=== PATIENT | male | born 1960 | race Caucasian/White ===

== ENCOUNTER 2024-05-09 14:49 | Emergency (ER) | payer MEDICAID, SELFPAY ==
[2024-05-09 14:50] VITALS: BMI 31.9
--- NOTE | 2024-05-09 15:20 | XR_ITS ---
Examination: Testicular sonography complete TECHNIQUE: Aleman scale sonographic images testes, assessment arterial inflow venous outflow, Doppler spectral analysis, color flow analysis. Exam date and time: May 09, 2024, 1600 hours INDICATIONS: Right testicular swelling beginning 2 days ago FINDINGS: Right testis is 4.6 cm epididymis 32 mm 2 x 3 mm right testicular mass 7 mm right epididymal calcification 4 mm right epididymal cyst Right inguinal hernia 21 x 20 mm Mild hydrocele Left testis is 4.6 cm epididymis 25 mm Arterial flow to the testicle. 2 small testicular cysts, the largest 5 x 6 mm Left epididymal cyst 3 x 3 mm IMPRESSION: No testicular torsion Right testicular solid mass 2 x 3 mm Bilateral epididymal cysts Right inguinal hernia Bilateral epididymitis
--- NOTE | 2024-05-09 15:20 | EDRME_ITS ---
Rapid Medical Screening Exam RME Arrival date/time: 05/09/24 14:49 63-year-old male with a history of hyperlipidemia, BPH presents to the emergency room with a chief complaint of right sided testicular swelling and tenderness x 2 days I have greeted and performed a focused initial assessment of this patient. A c omprehensive ED assessment and evaluation of the patient, analysis of all test results, and completion of the medical decision making process will be conducted by additional ED providers. Chief Complaint: Urogenital-Male Vital signs reviewed by provider: Yes
[2024-05-09 15:22] VITALS: BP 114/73; PULSE 66; RESP 16; TEMP 37; O2SAT 94
[2024-05-09 15:56] LABS: Basophils # (Auto) 0.1 Thou/mm3 (0.0-0.2); Basophils % (Auto) 1 % (0-2.5); Eosinophils # (Auto) 0.1 Thou/mm3 (0.0-0.5); Eosinophils % (Auto) 2 % (0-10); Hematocrit 43.3 % (41.0-53.0); Immature Granulocytes % (Auto) 0 % (0-0); Immature Granulocytes Auto 0.02 Thou/mm3 (0.00-0.00); Lymphocytes # (Auto) 1.4 Thou/mm3 (1.0-4.8); Lymphocytes % (Auto) 21 % (10-50); Mean Corpuscular HGB Conc 34.6 g/dl (31.0-37.0); Mean Corpuscular Hemoglobin 32.4 pg (25.0-35.0); Mean Corpuscular Volume 94 fL (80-100); Monocytes # (Auto) 0.5 Thou/mm3 (0.0-0.8); Monocytes % (Auto) 8 % (0-12); Neutrophils # (Auto) 4.6 Thou/mm3 (1.8-7.7); Neutrophils % (Auto) 69 % (37-80); Nucleated Red Blood Cell % 0 /100 WBC (0); Platelet Count 186 Thou/mm3 (140-440); RDW Standard Deviation 43.9 fL (35.1-43.9); Red Blood Count 4.63 Miln/mm3 (4.50-5.90); White Blood Count 6.7 Thou/mm3 (3.8-10.6)
[2024-05-09 16:13] LABS: Alanine Aminotransferase 33 U/L (10-49); Albumin, Serum 4.8 gm/dL (3.4-4.8); Albumin/Globulin Ratio 1.7 (1.2-2.2); Alkaline Phosphatase 67 U/L (46-116); Anion Gap 9 (7-16); Aspartate Amino Transferase 32 U/L (0-34); BUN/Creatinine Ratio 13 Ratio (12-20); Bilirubin,Total 1.1 mg/dL (0.3-1.2); Blood Urea Nitrogen 14 mg/dL (9-23); Calcium 9.6 mg/dL (8.3-10.6); Calcium (Corrected) 9.6 mg/dL (8.5-10.1); Carbon Dioxide 28.3 mMol/L (20.0-31.0); Chloride 105 mMol/L (98-107); Creatinine (Component) 1.1 mg/dL (0.6-1.3); Estimated Creatinine Clearance 78.9 mL/min (>60); Globulin 2.8 gm/dL (2.3-3.5); Glucose 88 mg/dL (74-106); Osmolality,Calculated 282 (275-295); Potassium 3.6 mMol/L (3.4-5.1); Sodium 142 mMol/L (136-145); Total Protein 7.6 gm/dL (5.7-8.2); eGFR > 60 See Note
[2024-05-09 16:15] LABS: Collection Type, Urine Clean Catch; Squamous Epithelial Cell,Urine 0 /hpf (0-5)
[2024-05-09 16:30] LABS: Bilirubin,Urine Negative (Negative); Blood,Urine Negative (Negative); Color,Urine Yellow (Lt Yel-Yel); Culture Indicated,Urine Not Indicated; Glucose, Urine Negative (Negative); Ketones,Urine Negative (Negative); Leukocyte Esterase,Urine Negative (Negative); Nitrite,Urine Negative (Negative); PH,Urine 5.5 (5.0-7.0); Protein,Urine Trace (Neg - Trace); RBC,Urine 2 /hpf (0-3); Specific Gravity,Urine 1.024 (1.001-1.035); WBC,Urine 1 /hpf (0-5)
[2024-05-09 16:34] LABS: Clarity,Urine Hazy (Clear/Hazy)
--- NOTE | 2024-05-09 18:24 | PD.EDADULT ---
ED General RME/HPI General Chief complaint: Urogenital-Male Stated complaint: Referred by PCP for US testicle Arrival date/time: 05/09/24 14:49 CC: Right testicular pain HPI ongoing for the past 2 days. Denies penile discharge blood with urination painful urination. Past medical history of similar event back in his 30s . Patient has no other complaints. RME / HPI RME / HPI narrative: 05/09/24 14:49 63-year-old male with a history of hyperlipidemia, BPH presents to the emergency room with a chief complaint of right sided testicular swelling and tenderness x 2 days I have greeted and performed a focused initial assessment of this patient. A comprehensive ED assessment and evaluation of the patient, analysis of all test results, and completion of the medical decision making process will be conducted by additional ED providers. Related Data Home Medications ?Medication ?Instructions ?Recorded ?Confirmed atorvastatin 40 mg tablet 1 mg PO DAILY 09/12/23 09/12/23 fluticasone propionate 50 1 mcg intranasal PRN PRN allergies 09/12/23 09/12/23 mcg/actuation nasal spray,suspension hydrochlorothiazide 25 mg tablet 25 mg PO QAM 09/12/23 09/12/23 lacosamide 200 mg tablet 200 mg PO BID 09/12/23 09/12/23 lansoprazole 15 mg capsule,delayed 1 mg PO AC 09/12/23 09/12/23 release levetiracetam 1,000 mg tablet 1.5 mg PO BID 09/12/23 09/12/23 olanzapine 10 mg disintegrating 15 mg PO DAILY 09/12/23 09/12/23 tablet Held on 09/14/23. Instructions: Resume on 10/05/23. HOLD until neurology appointment tamsulosin 0.4 mg capsule 1 mg PO DAILY 09/12/23 09/12/23 Previous Rx's ?Medication ?Instructions ?Recorded levofloxacin 750 mg tablet 750 mg PO Q24H 10 days #10 tabs 05/09/24 Allergies Allergy/AdvReac Type Severity Reaction Status Date / Time aspirin Allergy Unknown Verified 09/12/23 19:49 Review of Systems Review of Systems Narrative Review of Systems: GEN: No fever, no chills, no weight loss EYES: No discharge, no visual changes, no pain HEENT: No ear pain, no congestion, no sore throat PULM: No shortness of breath, no cough, no congestion CV: No chest pain, no dyspnea on exertion, no palpitations GI: No nausea, no vomiting, no diarrhea, no pain, no constipation : No frequency, no urgency, no dysuria,+ testicular pain MUSC/SKEL: No joint pain, no back pain SKIN: No rash PSYCH: No hallucinations, no depression HEME/LYMPH: No easy bleeding or bruising tendencies NEURO: No weakness, no headache Past Medical History Past Medical History NEUROLOGIC: Positive Seizures CARDIAC: Positive Hypercholesterolemia and Hypertension; Negative Congestive Heart Failure RESPIRATORY: Positive Chronic Obstructive Pulmonary Disease (COPD) and Asthma GENITOURINARY: Negative Renal Disease ENDOCRINE: Negative Diabetes Mellitus Type 1 or Diabetes Mellitus Type 2 HEMATOLOGIC: Negative Blood Disorders PSYCHO/SOCIAL: Positive Schizophrenia and Depression OTHER HISTORY: Positive Falls; Negative Cancer Surgical History SURGICAL: Negative Abdominal Surgery Social History SMOKING STATUS: Former smoker SUBSTANCE USE: does not use ED Exam Narrative Physical exam: [General: Obese not in cot no acute distress Head normocephalic HEENT: Within acceptable limits Neck is supple nontender Chest equal chest rise nontender to palpation Respiratory: Clear to auscultation no wheezes crackles or rubs CV: Rate rhythm is regular no murmurs rubs or clicks Abdomen is distended secondary to body habitus soft nontender no masses positive bowel sounds all 4 quadrants : Penis: Penis is a normal shape circumcised and no crusting blood at meatus. No ulcerations on the shaft or the glans. Scrotum, normal in appearance of both testes are distended right and mild tenderness no appreciable inflammation no erythema open lesions or indurations. Both testes are freely mobile Back: No CVA tenderness no spinous process tenderness from cervical spine thoracic and lumbar spine Skin: Intact no petechiae rash induration ulceration or crepitus Extremities: Moving all extremity against resistance cap refill less than 2 seconds neurosensory intact Neuro: Awake alert oriented x3 Glascow coma 15 no focal deficits] Course Quality Measures none Orders Category Date Time Status US testicular Stat Exams 05/09/24 15:20 Completed CBC Stat Lab 05/09/24 15:28 Completed CMP [Comprehensive Metabolic Panel] Stat Lab 05/09/24 15:28 Completed UA, C/S IF [Urinalysis, C/S if Indicated] Stat Lab 05/09/24 16:00 Completed cefTRIAXone [Rocephin] 500 mg Med 05/09/24 18:20 Discontinued Lidocaine 1% 20 ml [Xylocaine 1% 20 ML] 1 ml IM X1 Vital Signs Vital signs: Vital Signs Temperature 98.6 F 05/09/24 15:22 Pulse Rate 66 05/09/24 15:22 Respiratory Rate 16 05/09/24 15:22 Blood Pressure 114/73 05/09/24 15:22 Pulse Oximetry (%) 94 L 05/09/24 15:22 Oxygen Delivery Method Room Air 05/09/24 15:22 [facility] Patient data External records reviewed:: [facility] previous records Clinical information provided by:: patient Social determinants that could affect healthcare access:: none Patient has the following chronic illnesses:: None How is presenting disease/condition affected by chronic disease/condition?: uneffected by Evaluation data The following diagnostics were reviewed and interpreted by me:: lab results and radiology exam(s) Lab and/or radiology exams considered but not ordered:: CBC shows no acute leukocytosis anemia thrombocytopenia CMP shows no acute electrolyte imbalances renal impairment transaminitis or T. bili elevation Ultrasound shows right inguinal hernia, epididymitis bilaterally, and a small mass on the right testes. Interpretation Summary: Patient informed that he will need antibiotics for the epididymitis states that he saw his doctor yesterday and was written for antibiotics but he does not sure what they are. Patient also informed of the testicular mass and he is to follow-up with urology. Medications Medications considered but not ordered:: None Medication administrations:: Medication Administration History Discontinued Medications Ceftriaxone Sodium 500 mg/ (Lidocaine HCl 1 ml) 0 mg IM X1 ONE Stop: 05/09/24 18:21 None Consultations Consultation(s) initiated? (list below): No Diagnosis Differential Diagnosis ED Complaint MDM: Epididymitis orchitis hydrocele Most likely diagnosis given after review of the tests above:: Epididymitis testicular mass Admission Indicated Admission indicated?: not indicated Explain why admission is indicated or not indicated:: Stable for discharge Admission Request Was there a request for admission?: No Disposition Plan Disposition Plan: Discharge Discharge Attestation Discharge Attestation: The patient and all family members were given an opportunity to ask questions and understood the discharge instructions. Discharge instructions specifically effects, indications for sooner follow up or return to the emergency department, and the expected course of current diagnosis. Patient condition: Stable Medical Decision Making Differential Diagnosis Differential Diagnosis: Epididymitis orchitis hydrocele Lab Data 05/09/24 15:28 05/09/24 15:28 Labs: Lab Results 05/09/24 05/09/24 Range/Units 15:28 16:00 WBC 6.7 (3.8-10.6) Thou/mm3 RBC 4.63 (4.50-5.90) Miln/mm3 Hgb 15.0 (13.5-16.0) g/dL Hct 43.3 (41.0-53.0) % MCV 94 (80-100) fL MCH 32.4 (25.0-35.0) pg MCHC 34.6 (31.0-37.0) g/dl RDW Std Deviation 43.9 (35.1-43.9) fL Plt Count 186 (140-440) Thou/mm3 Neut % (Auto) 69 (37-80) % Lymph % (Auto) 21 (10-50) % [place] % (Auto) 8 (0-12) % Eos % (Auto) 2 (0-10) % Baso % (Auto) 1 (0-2.5) % Neut # (Auto) 4.6 (1.8-7.7) Thou/mm3 Lymph # (Auto) 1.4 (1.0-4.8) Thou/mm3 [place] # (Auto) 0.5 (0.0-0.8) Thou/mm3 Eos # (Auto) 0.1 (0.0-0.5) Thou/mm3 Baso # (Auto) 0.1 (0.0-0.2) Thou/mm3 Immature Gran # (Auto) 0.02 H (0.00-0.00) Thou/mm3 Absolute Nucleated RBC 0.00 (0.00-0.00) Thou/mm3 Immature Gran % 0 (0-0) % Nucleated RBC % 0 (0) /100 WBC Sodium 142 (136-145) mMol/L Potassium 3.6 (3.4-5.1) mMol/L Chloride 105 (98-107) mMol/L Carbon Dioxide 28.3 (20.0-31.0) mMol/L Anion Gap 9 (7-16) BUN 14 (9-23) mg/dL Creatinine 1.1 (0.6-1.3) mg/dL Estim Creat Clear Calc 78.9 (>60) mL/min eGFR > 60 (60 - ) See Note BUN/Creatinine Ratio 13 (12-20) Ratio Glucose 88 (74-106) mg/dL Calculated Osmolality 282 (275-295) Calcium 9.6 (8.3-10.6) mg/dL Corrected Calcium 9.6 (8.5-10.1) mg/dL Total Bilirubin 1.1 (0.3-1.2) mg/dL AST 32 (0-34) U/L ALT 33 (10-49) U/L Alkaline Phosphatase 67 (46-116) U/L Total Protein 7.6 (5.7-8.2) gm/dL Albumin 4.8 (3.4-4.8) gm/dL Globulin 2.8 (2.3-3.5) gm/dL Albumin/Globulin Ratio 1.7 (1.2-2.2) Ur Collection Type Clean Catch Urine Color Yellow (Lt Yel-Yel) Urine Clarity Hazy (Clear/Hazy) Urine pH 5.5 (5.0-7.0) Ur Specific [place] 1.024 (1.001-1.035) Urine Protein Trace (Neg - Trace) Urine Glucose (UA) Negative (Negative) Urine Ketones Negative (Negative) Urine Blood Negative (Negative) Urine Nitrite Negative (Negative) Urine Bilirubin Negative (Negative) Urine Urobilinogen (Auto) 2.0 (0.0-1.0) mg/dL Ur Leukocyte Esterase Negative (Negative) Urine RBC 2 (0-3) /hpf Urine WBC 1 (0-5) /hpf Ur Squamous Epith Cells 0 (0-5) /hpf Urine Bacteria None (None) Ur Culture Indicated? Not Indicated Discharge Plan Plan Patient Disposition: HOME (Self Care) Patient condition on transfer: Stable Prescriptions/Referrals Prescriptions/Med Rec: New levofloxacin 750 mg tablet 750 mg PO Q24H 10 Days Qty: 10 0RF No Action atorvastatin 40 mg tablet 1 mg PO DAILY tamsulosin 0.4 mg capsule 1 mg PO DAILY olanzapine 10 mg tablet,disintegrating 15 mg PO DAILY lansoprazole 15 mg capsule,delayed release(DR/EC) 1 mg PO AC hydrochlorothiazide 25 mg Tablet 25 mg PO QAM levetiracetam 1,000 mg tablet 1.5 mg PO BID lacosamide 200 mg Tablet 200 mg PO BID fluticasone propionate 50 mcg/actuation [place],Suspension 1 mcg INTRANASAL PRN PRN (Reason: allergies) Referrals: Aranza Glass MD [Physician] - In 1 week Problem List Clinical Impression: Epididymitis, Pain in right testicle, Mass of right testis Patient/Caregiver Discharge Instructions Other Activity Instructions:: Have a small mass on your right testicle please follow-up with your urologist listed above. Take all medicines as prescribed if there is worsening of symptoms in spite of the medications return the emergency room immediately for further evaluation. Education Materials: ED Epididymitis Print Language: Djiboutian Stand Alone Forms: Radha Award Info., Patient Portal Info Letter, Work/School Release PA/PEOPLE GREETER Supervising Physician PA/PEOPLE GREETER Supervising Physician: Angel Mccoy ENP
[2024-05-09] MEDS: cefTRIAXone 500 MG, LIDOCAINE 1% 20 ML 1 ML IM (18:36)
== END 2024-05-09 19:01 | disposition home or self-care (01) ==
PROVIDERS: Nurse Practitioner Family; Emergency Provider Emergency Medicine
DX: N45.1 Epididymitis (principal); N50.9 Disorder of male genital organs, unspecified; E78.5 Hyperlipidemia, unspecified; N40.0 Benign prostatic hyperplasia without lower urinary tract symptoms
CPT/HCPCS: 36415; 76870; 80053; 81001; 85025; 96372; 99284; J0696; J3490

== ENCOUNTER 2024-07-09 19:05 | Emergency (ER) | payer MEDICAID, SELFPAY ==
[2024-07-09 19:12] VITALS: BP 128/67; PULSE 72; RESP 16; TEMP 37.1; O2SAT 93; BMI 31.2
[2024-07-09 19:35] VITALS: PULSE 90; RESP 16; O2SAT 95
[2024-07-09 19:40] VITALS: BP 137/81; PULSE 71; RESP 20; TEMP 37; O2SAT 95
--- NOTE | 2024-07-09 19:49 | EDNOTE_ITS ---
ED Seizures RME/HPI General Chief Complaint: Seizure Stated Complaint: SEIZURES Time Seen by Provider: 07/09/24 19:31 Arrival date/time: 07/09/24 19:05 RME / HPI RME / HPI Narrative: Dr. Gong?s Main ED Evaluation: 63yo male with a history of seizures, COPD, asthma, HTN, HLD, BPH BIBA from home presents to the ED for a seizure. Patient states he's had 3 seizures today, reporting that's unusual for him. Patient's caregiver at bedside states the patient did not fall or hit his head during any of his seizures, reporting he was sitting down for 2 of them, and was held up against the wall for the third seizure. Patient states he's had an increasing productive cough for the last two days. Patient denies any fever, chills, runny nose, sore throat, nausea, vomiting or any other associated symptoms. Related Data Home Medications ?Medication ?Instructions ?Recorded ?Confirmed atorvastatin 40 mg tablet 1 mg PO DAILY 09/12/2309/11 fluticasone propionate 50 1 mcg intranasal PRN PRN all ergies 09/12/23 09/12/23 mcg/actuation nasal spray,suspension hydrochlorothiazide 25 mg tablet 25 mg PO QAM 09/12/23 09/12/23 lacosamide 200 mg tablet 200 mg PO BID 09/12/2309/11 lansoprazole 15 mg capsule,delayed 1 mg PO AC 09/12/23 09/12/23 release levetiracetam 1,000 mg tablet 1.5 mg PO BID 09/12/23 0 09/12/23 olanzapine 10 mg disintegrating 15 mg PO DAILY 4 09/12/23 tablet Held on 09/14/23. Instructions: Resume on 10/05/23. HOLD until neurology appointment tamsulosin 0.4 mg capsule 1 mg PO DAILY 09/12/2309/11 Allergies Allergy/AdvReac Type Severity Reaction Status Date / Time aspirin Allergy Unknown Verified 07/09/24 19:35 Review of Systems Review of Systems Systems Reviewed: All systems reviewed, normal except as documented Past Medical History Past Medical History NEUROLOGIC: Positive Seizures CARDIAC: Positive Hypercholesterolemia and Hypertension; Negative Congestive Heart Failure RESPIRATORY: Positive Chronic Obstructive Pulmonary Disease (COPD) and Asthma GENITOURINARY: Negative Renal Disease ENDOCRINE: Negative Diabetes Mellitus Type 1 or Diabetes Mellitus Type 2 HEMATOLOGIC: Negative Blood Disorders PSYCHO/SOCIAL: Positive Schizophrenia and Depression OTHER HISTORY: Positive Falls; Negative Cancer Surgical History SURGICAL: Negative Abdominal Surgery Social History SMOKING STATUS: Never smoker SUBSTANCE USE: does not use ED Exam Narrative Physical exam: GENERAL APPEARANCE: alert and oriented x 4, well-developed, well-nourished, no acute distress VITALS: All vitals were reviewed and the pulse ox is 95% on room air, which is normal according to my interpretation. HEENT: Normocephalic, macerated right tongue; pupils equal, round, reactive to light; EOMI; mucous membranes pink, moist; oropharynx clear NECK: Supple LUNGS: CTABL; no wheezes, no rales, no rhonchi HEART: Regular rate, regular rhythm; normal S1, S2; no murmurs ABDOMEN: non distended; normal BS; soft, no tenderness, no guarding, no rebound; no masses, no organomegaly, no hernia BACK: no CVA tenderness EXTREMITIES: atraumatic; no edema NEUROLOGIC: awake; alert and oriented x4; cranial nerves II-XII grossly intact; no focal sensory or motor deficits PSYCHIATRIC: appropriate mood and affect SKIN: warm, dry, normal color; no rashes Course Course Course Narrative: 63-year-old male with history of seizure disorder on Keppra at home presented to the emergency department after several breakthrough seizures today at home. Patient denies recent dysuria, abdominal pain, rashes. Quality Measures none Orders Category Date Time Status Deli Associate NOW Care 07/09/24 20:13 Completed Continuous Pulse Oximetry NOW Care 07/09/24 20:13 Completed IV [Insert IV] NOW Care 07/09/24 20:13 Completed Seizure precautions NOW Care 07/09/24 20:13 Completed XR chest 1V portable Stat Exams 07/09/24 20:27 Completed CBC Stat Lab 07/09/24 20:25 Completed CK [Creatine Kinase] Stat Lab 07/09/24 20:25 Completed CMP [Comprehensive Metabolic Panel] Stat Lab 07/09/24 20:25 Completed INR [Prothrombin Time with INR] Stat Lab 07/09/24 20:25 Completed Lactate (Lactic Acid) Stat Lab 07/09/24 20:25 Completed PTT [Partial Thromboplastin Time] Stat Lab 07/09/24 20:25 Completed LORazepam [Ativan Inj] Med 07/09/24 20:20 Discontinued 1 mg IVP X1 ONE Sodium Chloride 0.9% 1000 ml [Ns] 1,000 ml Med 07/09/24 20:20 Discontinued IV 999 mls/hr levETIRAcetam INJ [Keppra Inj] Med 07/09/24 20:13 Discontinued 1,000 mg IVP X1 ONE Reevaluation(s) Reevaluation #1: Discussed results with the patient and his caregiver at bedside. Patient feels significantly better and feels better being discharged home. Time: 21:50 Vital Signs Vital signs: Vital Signs Temperature 98.7 F 07/09/24 19:12 Pulse Rate 72 07/09/24 19:12 Respiratory Rate 16 07/09/24 19:12 Blood Pressure 128/67 07/09/24 19:12 Pulse Oximetry (%) 93 L 07/09/24 19:12 Oxygen Delivery Method Room Air 07/09/24 19:12 Seizure MDM Narrative MDM Narrative:: Scribe Attestation: 07/09/24 - Alma Delia Castellon am scribing for and in the presence of Dr. Gong. Patient data External records reviewed:: [facility] previous records (Per chart review, patient was admitted here on 09/12/23 for a seizure.) Clinical information provided by:: patient and visor installer Social determinants that could affect healthcare access:: none Patient has the following chronic illnesses:: seizures, COPD, asthma, HTN, HLD, BPH How is presenting disease/condition affected by chronic disease/condition?: caused by Evaluation data The following diagnostics were reviewed and interpreted by me:: lab results and radiology exam(s) Lab and/or radiology exams considered but not ordered:: none Interpretation Summary: CBC normal, PT/INR/PTT normal, CMP normal. -------- [facility] Report Signed Patient: SUPRIYA HECK [facility]. Record#: [id number] Birthdate: 1960 Age/Sex: 63 / M Location: [facility] Attending Dr: Ordering Physician: Vargas Gong MD Date of Service: 07/09/24 Procedure(s): XR chest 1V portable Accession Number(s): [id number] cc: Avery Hoyt MD; NO PRIMARY/FAMILY,PHYSICIAN; Vargas Gong MD~ Examination: AP chest single view TECHNIQUE: AP portable semiupright chest single view Date and time: July 09, [id number] hours Comparison April 21, 2023 INDICATIONS: Cough and shortness of breath chest pain 2 days FINDINGS: Normal heart size. Lungs are clear. Osseous structures are intact. IMPRESSION: No active disease Dictated By: Avery Hoyt MD Signed By: <Electronically signed by Avery Hoyt MD in OV> 07/09/247 Medications / Prescriptions Medications or Prescriptions considered but not ordered:: none Medication administrations:: Medication Administration History Discontinued Medications Sodium Chloride (Ns) 1,000 mls @ 999 mls/hr IV .Q1H1M ONE Stop: 07/09/24 21:20 Last Infusion: 07/09/24 21:43 Dose: Infused Documented By: Admin: 07/09/24 20:35 Dose: 999 mls/hr Documented By: AMINA Levetiracetam (Levetiracetam Inj 100 Mg/Ml Vial 5ml) 1,000 mg IVP X1 ONE Stop: 07/09/24 20:14 Last Admin: 07/09/24 20:35 Dose: 1,000 mg Documented By: AMINA Lorazepam (Lorazepam 2 Mg/Ml Vial) 1 mg IVP X1 ONE Stop: 07/09/24 20:21 Last Admin: 07/09/24 20:35 Dose: 1 mg Documented By: AMINA see above Consultations Consultation(s) initiated? (list below): No Diagnosis Seizure Differential Diagnosis: status epilepticus and other (breakthrough seizure, medication noncompliance, infectious cause) Most likely diagnosis given after review of the tests above:: see clinical impression below Admission Indicated Admission indicated?: not indicated Explain why admission is indicated or not indicated:: Patient's diagnostic tests are unremarkable. Patient is stable to be discharged home. Admission Request Was there a request for admission?: No Disposition Plan Disposition Plan: Discharge Discharge Attestation Discharge Attestation: The patient and all family members were given an opportunity to ask questions and understood the discharge instructions. Discharge instructions specifically effects, indications for sooner follow up or return to the emergency department, and the expected course of current diagnosis. Patient condition: Stable Discharge Plan Plan Patient Disposition: HOME (Self Care) Discharge Disposition comment: Stable for discharge home Patient condition on transfer: Stable Prescriptions/Referrals Prescriptions/Med Rec: No Action atorvastatin 40 mg tablet 1 mg PO DAILY tamsulosin 0.4 mg capsule 1 mg PO DAILY olanzapine 10 mg tablet,disintegrating 15 mg PO DAILY lansoprazole 15 mg capsule,delayed release(DR/EC) 1 mg PO AC hydrochlorothiazide 25 mg Tablet 25 mg PO QAM levetiracetam 1,000 mg tablet 1.5 mg PO BID lacosamide 200 mg Tablet 200 mg PO BID fluticasone propionate 50 mcg/actuation [place],Suspension 1 mcg INTRANASAL PRN PRN (Reason: allergies) Referrals: [facility] [Provider Group] - In 1 week Problem List Clinical Impression: Breakthrough seizure Patient/Caregiver Discharge Instructions Discharge Activity: activity as tolerated Education Materials: ED Seizure, Recurrent (Adult) Additional Instructions: Please return to the emergency department if you have any worsening or any further medical problems and we will help you. Otherwise you should follow-up with your primary care doctor or in the family [facility] within the next several days Print Language: Israeli Stand Alone Forms: Radha Award Info., Patient Portal Info Letter
--- NOTE | 2024-07-09 20:27 | XR_ITS ---
Examination: AP chest single view TECHNIQUE: AP portable semiupright chest single view Date and time: July 09, [id number] hours Comparison April 21, 2023 INDICATIONS: Cough and shortness of breath chest pain 2 days FINDINGS: Normal heart size. Lungs are clear. Osseous structures are intact. IMPRESSION: No active disease
[2024-07-09 20:33] VITALS: PULSE 63
[2024-07-09] MEDS: SODIUM CHLORIDE 0.9% 1000 ML 1,000 ML 999 ML IV (20:35)
[2024-07-09] MEDS: LORazepam 2 MG/ML VIAL 1 MG IVP (20:35)
[2024-07-09] MEDS: levETIRAcetam INJ 100 MG/ML VIAL 5ML 1000 MG IVP (20:35)
[2024-07-09 20:56] LABS: Basophils % (Auto) 1 % (0-2.5); Eosinophils # (Auto) 0.1 Thou/mm3 (0.0-0.5); Eosinophils % (Auto) 1 % (0-10); Hematocrit 38.5 % (41.0-53.0); Hemoglobin 14.2 g/dL (13.5-16.0); Immature Granulocytes % (Auto) 0 % (0-0); Immature Granulocytes Auto 0.02 Thou/mm3 (0.00-0.00); Lymphocytes # (Auto) 1.3 Thou/mm3 (1.0-4.8); Lymphocytes % (Auto) 15 % (10-50); Mean Corpuscular HGB Conc 36.9 g/dl (31.0-37.0); Mean Corpuscular Hemoglobin 32.9 pg (25.0-35.0); Mean Corpuscular Volume 89 fL (80-100); Monocytes # (Auto) 0.6 Thou/mm3 (0.0-0.8); Monocytes % (Auto) 7 % (0-12); Neutrophils # (Auto) 6.6 Thou/mm3 (1.8-7.7); Neutrophils % (Auto) 77 % (37-80); Nucleated Red Blood Cell % 0 /100 WBC (0); Platelet Count 176 Thou/mm3 (140-440); RDW Standard Deviation 42.1 fL (35.1-43.9); Red Blood Count 4.32 Miln/mm3 (4.50-5.90); White Blood Count 8.6 Thou/mm3 (3.8-10.6)
[2024-07-09 21:08] LABS: Partial Thromboplastin Time 25.8 Seconds (22.0-36.0); Prothrombin Time 11.4 Seconds (9.0-12.2)
[2024-07-09 21:11] LABS: Alanine Aminotransferase 30 U/L (10-49); Albumin, Serum 4.7 gm/dL (3.4-4.8); Albumin/Globulin Ratio 2.6 (1.2-2.2); Alkaline Phosphatase 68 U/L (46-116); Anion Gap 11 (7-16); Aspartate Amino Transferase 28 U/L (0-34); BUN/Creatinine Ratio 18 Ratio (12-20); Blood Urea Nitrogen 18 mg/dL (9-23); Calcium 9.5 mg/dL (8.3-10.6); Calcium (Corrected) 9.5 mg/dL (8.5-10.1); Carbon Dioxide 24.8 mMol/L (20.0-31.0); Chloride 104 mMol/L (98-107); Creatine Kinase 146 U/L (34-171); Estimated Creatinine Clearance 91.5 mL/min (>60); Globulin 1.8 gm/dL (2.3-3.5); Glucose 118 mg/dL (74-106); Osmolality,Calculated 282 (275-295); Sodium 140 mMol/L (136-145); Total Protein 6.5 gm/dL (5.7-8.2); eGFR > 60 See Note
[2024-07-09 22:15] VITALS: BP 116/76; PULSE 60; RESP 16; TEMP 37; O2SAT 95
== END 2024-07-09 22:18 | disposition home or self-care (01) ==
PROVIDERS: Emergency Provider Emergency Medicine
DX: G40.909 Epilepsy, unspecified, not intractable, without status epilepticus (principal); E78.5 Hyperlipidemia, unspecified; I10 Essential (primary) hypertension; J44.89 Other specified chronic obstructive pulmonary disease; N40.0 Benign prostatic hyperplasia without lower urinary tract symptoms
CPT/HCPCS: 36415; 71045; 80053; 82550; 83605; 85025; 85610; 85730; 96361; 96374; 96375; 99284; J1953; J2060; J7030

== ENCOUNTER → 2025-01-07 | Outpatient (CLI) | payer MEDICAID, SELFPAY ==
--- NOTE | 2025-01-07 13:00 | XR_ITS ---
Examination: MRI brain without intravenous contrast. Date and time of exam: January 07, 2025, 1358 hours INDICATIONS: Seizures beginning age 12 increasing in frequency every 4 months Technique: Multiple axial and sagittal images of the brain obtained. Siemens high-resolution 1.5 Nirmala short bore scanners utilized. Sagittal sections, T1-weighted, TR 500, TE 14, are performed. Axial sections proton-density and T2-weighted have been obtained. Inversion recovery axial images, TR 9, 260, TE 111, TI 2500. Diffusion weighted images, axial sections, TR 4800, TE 128, B value 1000 Axial sections, ADC map, TR 4800, TE 128 Findings: Enlargement of the sella turcica is not present. The optic chiasm and infundibular are not remarkable. Prepontine and interpeduncular cisterns are not enlarged. There is no localized enlargement of the medulla or janell. Fourth ventricle and cerebellar tonsils appear normal in position. No subacute area of hemorrhage density is seen. Mass in the cerebellopontine angle region is not evident. Globes symmetrical. Orbital musculature including medial lateral rectus muscles do not exhibit abnormality. Diffusion-weighted images demonstrate no focus of restricted diffusion Chronic pansinusitis. Increased white matter signal not seen Mass effect upon the ventricular system is not identified. Impression: Negative for acute hemorrhage mass effect or midline shift No acute infarct
== END | disposition home or self-care (01) ==
PROVIDERS: PCP Internal Medicine; Referring Provider Internal Medicine; Visit Provider Internal Medicine
DX: R41.3 Other amnesia (principal)
CPT/HCPCS: 70551

== ENCOUNTER 2025-01-16 21:08 | Emergency (ER) | payer MEDICAID, SELFPAY ==
[2025-01-16 21:11] VITALS: BMI 27.1
[2025-01-16 21:27] VITALS: BP 118/79; PULSE 57; RESP 18; TEMP 36.4; O2SAT 96
--- NOTE | 2025-01-16 22:53 | EDNOTE_ITS ---
ED General RME/HPI General Chief complaint: General Adult/Misc Complain Stated complaint: NEEDS MEDICATION REFILL Time Seen by Provider: 01/16/25 21:41 Source: patient and family Arrival date/time: 01/16/25 21:08 Mode of arrival: ambulatory Limitations: no limitations RME / HPI RME / HPI narrative: This patient is a 64-year-old male who arrives to the ED today for assistance with medication refill concerns. Patient arrives with his prepackaged multiple prescription medications that were sent to him, unfortunately, all of the blister packs were missing his Vimpat 200 mg twice a day tablets. Patient arrives today with a request for medication for in-house tonight as well as a prescription until he can receive correction medication from an improperly processed prescription. Related Data Home Medications ?Medication ?Instructions ?Recorded ?Confirmed atorvastatin 40 mg tablet 1 mg PO DAILY 09/12/2309/11 fluticasone propionate 50 1 mcg intranasal PRN PRN all ergies 09/12/23 09/12/23 mcg/actuation nasal spray,suspension hydrochlorothiazide 25 mg tablet 25 mg PO QAM 09/12/23 09/12/23 lacosamide 200 mg tablet 200 mg PO BID 09/12/2309/11 lansoprazole 15 mg capsule,delayed 1 mg PO AC 09/12/23 09/12/23 release levetiracetam 1,000 mg tablet 1.5 mg PO BID 09/12/23 0 09/12/23 olanzapine 10 mg disintegrating 15 mg PO DAILY 4 09/12/23 tablet Held on 09/14/23. Instructions: Resume on 10/05/23. HOLD until neurology appointment tamsulosin 0.4 mg capsule 1 mg PO DAILY 09/12/2309/11 Previous Rx's ?Medication ?Instructions ?Recorded lacosamide 200 mg tablet (Vimpat) 200 mg PO BID #20 ta bs 01/16/25 Allergies Allergy/AdvReac Type Severity Reaction Status Date / Time aspirin Allergy Unknown Verified 01/16/25 21:10 amlodipine Allergy Verified 01/16/25 21:10 Review of Systems Review of Systems Systems Reviewed: All systems reviewed, normal except as documented Past Medical History Past Medical History NEUROLOGIC: Positive Seizures CARDIAC: Positive Hypercholesterolemia and Hypertension; Negative Congestive Heart Failure RESPIRATORY: Positive Chronic Obstructive Pulmonary Disease (COPD) and Asthma GENITOURINARY: Negative Renal Disease ENDOCRINE: Negative Diabetes Mellitus Type 1 or Diabetes Mellitus Type 2 HEMATOLOGIC: Negative Blood Disorders PSYCHO/SOCIAL: Positive Schizophrenia and Depression OTHER HISTORY: Positive Falls; Negative Cancer Surgical History SURGICAL: Negative Abdominal Surgery Social History SMOKING STATUS: Never smoker SUBSTANCE USE: does not use ED Exam Narrative Physical exam: Patient was asymptomatic and unremarkable at time of evaluation. General Limitations: Present no limitations General appearance: Present alert and in no apparent distress Head Head exam: Present atraumatic Eye Eye exam: Present normal appearance, PERRL and EOMI ENT ENT exam: Present normal exam, normal oropharynx and mucous membranes moist Neck Neck exam: Present normal inspection, full ROM and trachea midline Chest Chest inspection: Present normal inspection and symmetric chest wall rise Respiratory Respiratory exam: Present normal lung sounds bilaterally Cardiovascular Cardiovascular exam: Present regular rate, normal rhythm and normal heart sounds Abdominal Exam Abdominal exam: Present soft and normal bowel sounds Extremities Exam Extremities exam: Present normal inspection and full ROM Back Exam Back exam: Present normal inspection and full ROM Neurological Exam Neurological exam: Present alert, oriented X3 and CN II-XII intact Psychiatric Psychiatric exam: Present normal affect and normal mood Skin Skin exam: Present warm, dry, intact and normal color Course Quality Measures none Orders Category Date Time Status Lacosamide [Vimpat] Med 01/16/25 22:53 Once 200 mg PO X1 ONE As noted above Vital Signs Vital signs: Vital Signs Temperature 97.5 F 01/16/25 21:27 Pulse Rate 57 L 01/16/25 21:27 Respiratory Rate 18 01/16/25 21:27 Blood Pressure 118/79 01/16/25 21:27 Pulse Oximetry (%) 96 01/16/25 21:27 Oxygen Delivery Method Room Air 01/16/25 21:27 As noted above Discharge Plan Plan Patient Disposition: HOME (Self Care) Prescriptions/Referrals Prescriptions/Med Rec: New lacosamide [Vimpat] 200 mg tablet 200 mg PO BID Qty: 20 0RF No Action atorvastatin 40 mg tablet 1 mg PO DAILY tamsulosin 0.4 mg capsule 1 mg PO DAILY olanzapine 10 mg tablet,disintegrating 15 mg PO DAILY lansoprazole 15 mg capsule,delayed release(DR/EC) 1 mg PO AC hydrochlorothiazide 25 mg Tablet 25 mg PO QAM levetiracetam 1,000 mg tablet 1.5 mg PO BID lacosamide 200 mg Tablet 200 mg PO BID fluticasone propionate 50 mcg/actuation [place],Suspension 1 mcg INTRANASAL PRN PRN (Reason: allergies) Problem List Clinical Impression: Seizure Patient/Caregiver Discharge Instructions Education Materials: ED Seizure, Recurrent (Adult) Additional Instructions: Advised patient contact his dispensing pharmacy for rectification of his Vimpat error. Print Language: [place]ish Stand Alone Forms: Radha Award Info., Patient Portal Info Letter MDM Narrative MDM hospital course (for use when minimal MDM required): Advised patient that I will fill his Vimpat prescription for 10 days. Patient was thankful and states he should be able to manage his medication by name. Clinical Information Provided by: patient Medical Records reviewed [facility] Meds/Rx considered, not ordered None describe: None Labs/Rad/Tests considered, not ordered None Describe: None Chronic Illness/Social Conditions which may negatively complicate care or outcome(s)-explain: other (None) Explain: None EKG EKG not done Labs Labs: none Lab(s) Interpretation(s): None Imaging Imaging interpretation: none Imaging Interpretation(s): None Medication Administration(s) Vimpat 200 mg Diagnosis Differential Diagnosis ED Complaint MDM: Encounter for medication refill
[2025-01-16] MEDS: LACOSAMIDE 50 MG TABLET 200 MG PO (23:12)
== END 2025-01-16 23:15 | disposition home or self-care (01) ==
LOC: SERX 23:42
PROVIDERS: Emergency Provider Emergency Medicine
DX: Z76.0 Encounter for issue of repeat prescription (principal); R56.9 Unspecified convulsions
CPT/HCPCS: 99281; A9270